=== PATIENT | male | born 1965 | race African-American/Black ===

== ENCOUNTER 2018-02-14 16:03 | Emergency (ER) | payer MEDICAID ==
[2018-02-14] MEDS ORDERED: Sodium Chloride 0.9% 1,000 ML IV ONE (16:23)
[2018-02-14] MEDS ORDERED: Ondansetron 4 MG/2 ML SDV IVPUSH ONE (16:23)
[2018-02-14] MEDS ORDERED: Ondansetron 4 MG/2 ML SDV ONE (16:24)
[2018-02-14] MEDS ORDERED: Lidocaine 1% 30 ML SDV INJECT ONE (16:49)
[2018-02-14] MEDS ORDERED: Morphine 2 MG/ML Syringe IVPUSH ONE (16:50)
[2018-02-14] MEDS ORDERED: Iopamidol 612 MG/ML 100 ML Bottle IVPUSH ONE (17:00)
[2018-02-14 17:20] LABS: CHLORIDE,CL 108 mmol/L (98-107); SODIUM,NA 144 mmol/L (136-145)
[2018-02-14 17:21] LABS: ANION GAP 19.3 mmol/L (10-20)
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
[2018-02-14] MEDS ORDERED: Sodium Chloride 0.9% 1,000 ML IV SCH (18:15)
[2018-02-14] MEDS ORDERED: Take Home: Amoxicillin/Clavulanate K 875-125 MG Tab, 2 Tab Pack PO ONE (18:58)
[2018-02-14] MEDS ORDERED: Potassium Chloride 20 MEQ Tab.ER ONE (19:08)
[2018-02-15] MEDS ORDERED: Potassium Chloride 10 MEQ Tab.ER PO ONE ×2 (18:14→18:57)
== END 2018-02-14 20:03 | disposition home or self-care (01) ==
LOC: VM.ED 16:03
DX: S06.9X9A Unspecified intracranial injury with loss of consciousness of unspecified duration, initial encounter (principal); S02.40CA Maxillary fracture, right side, initial encounter for closed fracture; S01.81XA Laceration without foreign body of other part of head, initial encounter; Z91.018 Allergy to other foods; V19.9XXA Pedal cyclist (driver) (passenger) injured in unspecified traffic accident, initial encounter
CPT/HCPCS: 12013; 36415; 70450; 70486; 71260; 72100; 72125; 73030; 73120; 74177; 80053; 82550; 83735; 84484; 85025; 85610; 93005; 96361; 96374; 96375; 99291; 99292; G0480; Q9967

== ENCOUNTER 2021-06-17 18:54 | Emergency (ER) | payer BC, MEDICAID ==
[2021-06-17] MEDS ORDERED: Ketorolac 30 MG/ML SDV IM ONE (19:53)
[2021-06-17] MEDS ORDERED: Take Home: Cyclobenzaprine 10 MG Tab, 4 Tab Pack PO ONE (19:54)
[2021-06-17] MEDS ORDERED: Take Home: Acetaminophen/HYDROcodone 325-5 MG, 5 Tab Pack PO ONE (19:54)
[2021-06-17 20:49] VITALS: BP 139/88; PULSE 97
== END 2021-06-17 20:35 | disposition home or self-care (01) ==
LOC: VM.ED 18:54
DX: M62.830 Muscle spasm of back (principal); Z91.018 Allergy to other foods
CPT/HCPCS: 96372; 99283; A9270-GY; J1885; J3360